=== PATIENT | male | born 1950 ===

== ENCOUNTER 2018-03-20 08:52 | Emergency (ER) | payer OTHER ==
[~2018-03-20] VITALS: Ht 177.8 cm; Wt 81.7 kg
[~2018-03-20 08:52] MED LIST: Flomax0.4 MG PO; HYDACE5 PO; IBUP200; KETO10 PO; OXYACE5T PO; PROM25 PO; Percocet 5-3251 EACH PO; TAMS.4ER PO; Zofran Odt8 MG SL
[2018-03-20] MEDS ORDERED: CHOL10002 PO (09:33)
[2018-03-20] MEDS ORDERED: Prednisone20 MG PO (10:06)
== END 2018-03-20 10:35 | disposition home or self-care (01) ==
LOC: ER 08:52
DX: T63.441A Toxic effect of venom of bees, accidental (unintentional), initial encounter (principal); T78.2XXA Anaphylactic shock, unspecified, initial encounter; Z79.899 Other long term (current) drug therapy
CPT/HCPCS: 36415; 96361; 96374; 96375; 99284-25; J1200; J2930; J3490; J7030

== ENCOUNTER → 2020-11-06 | Outpatient (CLI) | payer OTHER ==
[~2020-11-06] MED LIST changes: +CHOL10002 PO; +Prednisone20 MG PO
[2020-11-06 11:23] LABS: Source, Urine Clean Catch
[2020-11-06 13:30] LABS: Appearance, Urine Clear (Clear); Bilirubin, Urine Neg (Neg); Blood, Urine 1+ (Neg); Color, Urine Yellow (P-Yellow); Glucose Qualitative, Urine Neg (Neg); Ketones, Urine 1+ (Neg); Leukocyte Esterase, Urine Neg (Neg); Nitrite, Urine Neg (Neg); Protein, Urine Neg (Neg); Urobilinogen, Urine NORM (Normal)
[2020-11-06 14:20] LABS: Bacteria Rare /hpf; Mucus Heavy (0-Heavy); Squamous Epithelial Cells Rare /hpf (Few); White Blood Cells, Urine 0-2 /hpf (0-5)
== END ==
LOC: LAB SHORT 11:21
PROVIDERS: Internal Medicine
DX: R31.29 Other microscopic hematuria (principal)
CPT/HCPCS: 81001; 88108